=== PATIENT | female | born 1975 | race Caucasian/White ===

== ENCOUNTER 2018-05-03 11:59 | Emergency (ER) | END 2018-05-03 13:47 | disposition home or self-care (01) ==

== ENCOUNTER → 2019-03-30 | Outpatient (CLI) | payer BC ==
[~2019-03-30] MED LIST: MECL12.574 PO
== END | disposition home or self-care (01) ==
LOC: LAB 16:06
PROVIDERS: ATTEND Internal Medicine Interventional Cardiology
DX: R07.9 Chest pain, unspecified (principal)
CPT/HCPCS: 82565; 84520

== ENCOUNTER → 2019-07-13 | Outpatient (CLI) | payer BC ==
[~2019-07-13] MED LIST changes: +IOHEXOL 100 ML ONE; +NITROGLYCERIN AEROSOL (4.9 GM) ONE; +SOD CHLORIDE 0.9% 100 ML ONE
== END | disposition home or self-care (01) ==
LOC: LAB 08:43
PROVIDERS: ATTEND Internal Medicine
DX: R94.39 Abnormal result of other cardiovascular function study (principal); R00.2 Palpitations
CPT/HCPCS: 75571; 75574; 80048; Q9967; Z7610